=== PATIENT | female | born 1995 | race Caucasian/White ===

== ENCOUNTER 2020-09-16 17:11 | Emergency (ER) | payer BC, OTHER ==
--- OUTSIDE RECORDS SUMMARY | 2020-09-16 17:14 | XMS REPORT | Continuity of Care Document ---
:1995 Author Organization [facility] t Address [address] [place] [address] Care Team Providers Name Role Phone Doctor Unassigned, Name Attending Clinician Unavailable Jelani MENDEZ Attending Clinician Koko Zurita DO Attending Clinician Payers Payer Name Policy Type Policy Number Effective Date Expiration Date S ource Problems This patient has no known problems. Allergies, Adverse Reactions, Alerts Allergy Allergy Status Severity Reaction(s) Onset Inactive Treating Comm ents Source Name Type Date Date Clinician monse PATEL Active SV 2017-0 [facility] [place] Medications This patient has no known medications. Procedures This patient has no known procedures. Encounters Start End Encounter Admission Attending Care Care Encounter Source Date/Time Date/Time Type Type Clinicians Facility Department ID 2020-09-05 2020-09-05 Orders Doctor HARRISON [id number] 00:00:00 00:00:00 Only UnassignedPAM [id number] Pleak [facility] [id number] 2020-08-23 2020-08-23 BRIANNA Kaur [id number] 00:00:00 00:00:00 Management Pearl Singh [id number] [place] [id number] Professio [id number] [address] 2020-08-23 2020-08-23 Orders Doctor CHRISTY [id number] 00:00:00 00:00:00 Only Unassigned, PAM [id number] [place] [facility] [id number] [id number] 2020-08-23 2020-08-23 [facility] [id number] 00:00:00 00:00:00 Outreach Silverio [facility] [id number] [facility] [id number] PAVILLION [id number] 2020-08-11 2020-08-11 [facility] [id number] 00:00:00 00:00:00 Management Pearl Singh [id number] [place] [id number] Professio [id number] [address] 2020-08-11 2020-08-11 Case Jelani [facility] [id number] 00:00:00 00:00:00 Management Pearl Singh [id number] [place] [id number] Professio [phone] [address] 2020-08-11 2020-08-11 Telephone Kylenata [facility] [id number] 00:00:00 00:00:00 Pearlgregory Singh [id number] [place] [id number] Professio [id number] [address] 2020-08-09 2020-08-09 Office Jelani [facility] [id number] 10:11:36 11:17:54 Visit Pearl Gillespie [id number] [place] [id number] Professio [id number] [address] 2020-08-09 2020-08-09 Orders Doctor CHRISTY [id number] 00:00:00 00:00:00 Only Unassigned, PAM [id number] [place] [facility] [id number] [id number] 2020-07-27 2020-07-27 Outpatient [facility] [id number] [facility] 2020-06-30 2020-06-30 Outpatient [facility] [id number] [facility] 2020-06-28 2020-06-28 Outpatient [facility] [id number] [facility] 2020-06-20 2020-06-20 Outpatient [facility] [id number] [facility] 2020-06-16 2020-06-16 Outpatient [facility] [id number] [facility] 2020-04-19 2020-04-19 Outpatient [facility] [id number] [facility] 2020-04-11 2020-04-11 Outpatient [facility] [id number] [facility] 2020-04-11 2020-04-11 Outpatient [facility] [id number] [facility] 2020-03-10 2020-03-10 Outpatient [facility] [id number] [facility] Results This patient has no known results.
[2020-09-16] MEDS ORDERED: MORPHINE 4 MG/ML SYR ONE ×3 (17:51→21:34)
[2020-09-16] MEDS ORDERED: ONDANSETRON 4 MG/2 ML VIAL ONE ×2 (17:51→23:47)
--- NOTE | 2020-09-16 17:54 | RAD REPORT ---
EXAM DESCRIPTION: RAD - Chest Single View - 09/16/2020 5:36 pm CLINICAL HISTORY: SOB COMPARISON: December 2014 TECHNIQUE: AP portable chest image was obtained 09/16/2020 5:36 pm . FINDINGS: Lungs are clear. Heart and vasculature are normal. No measurable pleural effusion and no p neumothorax. No acute bony abnormality seen. No acute aortic findings suspected. IMPRESSION: No acute cardiopulmonary process. No significant change from comparison study.
[2020-09-16 18:04] LABS: Absolute Lymphocytes (CBC) 1.9 K/uL (0.7-4.9); Basophils % 0.3 % (0-1.3); Hematocrit 38.9 % (36.0-45.0); Lymphocytes % 15.6 % (15.3-44.8); MPV 9.3 fL (7.6-11.3); RBC Red Blood Cell Count 4.38 M/uL (3.86-4.86)
[2020-09-16 18:08] LABS: ALT/SGPT 94 U/L (12-78); AST/SGOT 142 U/L (15-37); Albumin 3.5 g/dL (3.4-5.0); Alkaline Phosphatase 145 U/L (45-117); BUN Blood Urea Nitrogen 15 mg/dL (7-18); Bicarbonate 23 mmol/L (21-32); Bilirubin Direct 0.2 mg/dL (0-0.2); Bilirubin Total 0.4 mg/dL (0.2-1.0); Glucose Level 103 mg/dL (74-106); Lipase 178 U/L (73-393); Protein, Total 7.2 g/dL (6.4-8.2); Sodium Level 141 mmol/L (136-145)
--- NOTE | 2020-09-16 18:37 | RAD REPORT ---
EXAM DESCRIPTION: US - Abdomen Exam Limited - 09/16/2020 6:19 pm CLINICAL HISTORY: abdominal pain COMPARISON: Stone Protocol dated 04/06/2016Stone Protocol dated 04/06/2016 FINDINGS: Normal-sized gallbladder is packed with multiple gallstones. There is no wall thickening o r pericholecystic fluid. No large amount of sludge identifiable. No common duct stone or biliary tree dilatation identified. IMPRESSION: Gallbladder packed with multiple gallstones. No other gallbladder or biliary tree abnorm ality.
[2020-09-16] MEDS ORDERED: PIPER/TAZO/NS 3.375gm 3.375 GM/100 ML BAG ONE (19:11)
--- NOTE | 2020-09-16 20:05 | ER ---
Nurse's Notes [facility] Name: eBto Daley Age: 24 yrs Sex: Female : 1995 Arrival Date: 09/16/2020 Time: 17:16 Bed 6 Private MD: Diagnosis: Choledocolithiasis Presentation: 09/16 17:16 Chief complaint: EMS states: Toned out for SOB, on arrival pt reports severe pain to jl7 RUQ, radiating to LUQ x 4 days, reports pain was so bad she could not breathe. EMS reports pts BP was 185/165, gave Nitro SL, next BP 142/85 gave 5 mg metoprolol IVP just prior to arrival at ED. Coronavirus screen: Client denies travel out of the [place] in the last 14 days. At this time, the client does not indicate any symptoms associated with coronavirus-19. Ebola Screen: No symptoms or risks identified at this time. Initial Sepsis Screen: Does the patient meet any 2 criteria? No. Patient's initial sepsis screen is negative. Does the patient have a suspected source of infection? No. Patient's initial sepsis screen is negative. Risk Assessment: Do you want to hurt yourself or someone else? Patient reports no desire to harm self or others. Onset of symptoms was September 13, 2020. Care prior to arrival: Medication(s) given: 0.4 mg Nitro SL \T\ LR IV initiated. 20 GA, in the right antecubital area. Transition of care: patient was not received from another setting of care. 17:16 Method Of Arrival: Ambulatory [facility] 17:16 Acuity: ALEJANDRO 3 jl7 Triage Assessment: 17:28 General: Appears in no apparent distress. uncomfortable, Behavior is cooperative, jl7 anxious. Pain: Complains of pain in right upper quadrant and left upper quadrant Pain currently is 8 out of 10 on a pain scale. at worst was 10 out of 10 on a pain scale. Pain began x 4 days. Neuro: Level of Consciousness is awake, alert, obeys commands, Oriented to person, place, time, situation. Cardiovascular: Patient's skin is warm and dry. Respiratory: Airway is patent Respiratory effort is even, unlabored, Respiratory pattern is regular, symmetrical. GI: Abdomen is round non-distended, Reports upper abdominal pain, nausea. Derm: Skin is pink, warm \T\ dry. 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 - Social history:: Smoking status: Reported history of juuling and/or vaping. Screenin:30 Abuse screen: Denies threats or abuse. Denies injuries from another. Nutritional jl7 screening: No deficits noted. Tuberculosis screening: No symptoms or risk factors identified. Fall Risk Assessment: 17:30 General: See triage assessment. jl7 18:30 Reassessment: Patient appears in no apparent distress at this time. No changes from jl7 previously documented assessment. Patient and/or family updated on plan of care and expected duration. Pain level reassessed. Patient is alert, oriented x 3, equal unlabored respirations, skin warm/dry/pink. 19:30 Reassessment: PATIENT IS ALERT AND ORIENTED. RECEIVED PAIN MEDICATION BEFORE SHIFT rv CHANGE. PATIENT IS AWARE OF THE RESULTS OF TESTS AND PLAN OF CARE. TRANSFER PROCESS ONGOING. 20:30 Reassessment: Patient appears in no apparent distress at this time. No changes from rr5 previously documented assessment. for transfer awaiting for approval. 21:30 Reassessment: Patient appears in no apparent distress at this time. Patient and/or rr5 family updated on plan of care and expected duration. Pain level reassessed. Patient is alert, oriented x 3, equal unlabored respirations, skin warm/dry/pink. awaiting for bed management to call back ( [facility]) complaint abdominal pain, pain score 5/10. ED provider aware with order made and carried out. 22:31 Reassessment: JIMENEZ [facility] given report and accepted the case. rr5 09/17 00:06 GI: Bowel sounds present X 4 quads. Abd is soft and non tender X 4 quads. rv Vital Signs: 09/16 17:16 BP 115 / 77; Pulse 82; Resp 16 S; Temp 97.8(TE); Pulse Ox 98% on R/A; Weight 83.91 kg jl7 (R); Height 5 ft. 2 in. (157.48 cm) (R); Pain 8/10; 18:49 BP 115 / 73; Pulse 90; Resp 15; Pulse Ox 98% ; jl7 19:30 BP 104 / 73; Pulse 79; Resp 17; Pulse Ox 98% on R/A; rv 20:30 BP 116 / 87; Pulse 70; Resp 17; Pulse Ox 99% ; rr5 21:30 BP 118 / 65; Pulse 75; Resp 16; Pulse Ox 99% ; rr5 22:00 BP 109 / 78; Pulse 67; Resp 16; Pulse Ox 100% on R/A; rv 23:00 BP 110 / 69; Pulse 64; Resp 16; Pulse Ox 99% on R/A; rv 23:30 BP 110 / 64; Pulse 90; Resp 17; Pulse Ox 99% on R/A; rv 17:16 Body Mass Index 33.84 (83.91 kg, 157.48 cm) jl7 ED Course: 17:16 Patient arrived in ED. jl7 17:22 Duncan Villa MD is Attending Physician. tw4 17:23 Chito Wise PA is PHCP. jmm 17:27 Triage completed. jl7 17:28 Arm band placed on right wrist. jl7 17:38 Chest Single View XRAY In Process Unspecified. EDMS 17:51 Patient has correct armband on for positive identification. Placed in gown. Bed in low jl7 position. Call light in reach. Side rails up X 1. 17:51 Pulse ox on. NIBP on. Warm blanket given. jl7 17:51 Initial lab(s) drawn, by me, sent to lab. Maintain EMS IV. Dressing intact. Good blood jl7 return noted. Site clean \T\ dry. Gauge \T\ site: 20 right AC. 18:19 US Abdomen Limited In Process Unspecified. EDMS 18:[address] [facility] with Tanya Layton. Stated she would do a bed check tt3 and call back. 18:49 Maliha Parker, DEBBY is Primary Nurse. jl7 19:15 Jennifer Prater called back with Dr. Fenton, their GI specialist to do a Doc to Doc tt3 consultation with CALEB Quevedo, provider of pt. 20:06 Primary Nurse role handed off by Maliha Parker RN tt3 20:17 Inocencio Foss, DEBBY is Primary Nurse. rv 20:39 Jennifer Josi called to check on covid results, provided her with the results. Stated she tt3 was waiting for a bed assignment and would call back with admin approval and the bed assignment. 21:46 Jennifer Prater gave admin approval. The accepting physician is Dr. Walton. Dr. Walton tt3 accepted at 1944. The pt is going to Room 2402. Nurse to call report to . Covid results and face sheet faxed to [phone]. 22:48 [facility] to transfer pt. ETA of 55 minutes - 1 hour per Mela with [facility]. 09/17 00:06 No provider procedures requiring assistance completed. IV is patent, with fluids rv infusing freely, Patient transferred, IV remains in place. Administered Medications: 09/16 17:50 Drug: morphine 4 mg Route: IVP; Site: right antecubital; jl7 18:00 Follow up: Response: No adverse reaction; Pain is decreased jl7 17:50 Drug: Zofran (Ondansetron) 4 mg Route: IVP; Site: right antecubital; jl7 18:00 Follow up: Response: No adverse reaction 7 18:40 Drug: morphine 4 mg Route: IVP; Site: right antecubital; jl7 19:40 Follow up: Response: No adverse reaction; RASS: Alert and Calm (0) rr5 19:02 Drug: Zosyn 3.375 grams Route: IVPB; Infused Over: 60 mins; Site: right antecubital; jl7 20:00 Follow up: Response: No adverse reaction; IV Status: Completed infusion; IV Intake: rr5 100ml 20:05 Drug: NS 0.9% 1000 ml Route: IV; Rate: 125 ml/hr; Site: right antecubital; rr5 09/17 00:07 Follow up: IV Status: Infusion continued upon transfer rv 09/16 21:25 Drug: morphine 4 mg {Note: rass 0.} Route: IVP; Site: right antecubital; rr5 09/17 00:07 Follow up: Response: No adverse reaction rv 09/16 23:32 Drug: Zofran (Ondansetron) 4 mg Route: IVP; Site: right antecubital; rr5 09/17 00:06 Follow up: Response: No adverse reaction rv Intake: 09/16 20:00 IV: 100ml; Total: 100ml. rr5 Outcome: 20:04 ER care complete, transfer ordered by . april 09/17 00:06 Transferred by ground EMS to [facility], Transfer form completed. rv X-rays sent w/ patient. Condition: good Instructed on the need for transfer. 00:07 Patient left the ED. rv Signatures: Dispatcher [employer] EDMS Chito Wise PA PA jmm Leal, Jahala, RN RN jl7 Duncan Villa MD MD tw4 Inocencio Foss RN RN Dima Galindo RN RN rr5 Yahir Alex tt3 Corrections: (The following items were deleted from the chart) 09/16 19:03 08:40 morphine 4 mg IVP in right antecubital jl7 jl7
--- NOTE | 2020-09-16 20:05 | EDPHYS ---
Physician Documentation [facility] Name: Beto Daley Age: 24 yrs Sex: Female : 1995 Arrival Date: 09/16/2020 Time: 17:16 Bed 6 Private MD: ED Physician Duncan Villa HPI: 09/16 17:28 This 24 yrs old Female presents to ER via Ambulatory with complaints of [facility] Abdominal Pain. 17:28 The patient presents with abdominal pain. Onset: The symptoms/episode began/occurred jm gradually, 1 week(s) ago. The symptoms do not radiate. Associated signs and symptoms: Pertinent positives: chest pain, shortness of breath, Pertinent negatives: diarrhea, vomiting. The symptoms are described as achy. Modifying factors: The symptoms are alleviated by nothing, the symptoms are aggravated by nothing. The patient has not experienced similar symptoms in the past. Patient recently diagnosed with bronchitis last week. 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 - Social history:: Smoking status: Reported history of juuling and/or vaping. ROS: 17:28 Constitutional: Negative for fever, chills, and weight loss. [facility] 17:28 Cardiovascular: Positive for chest pain. 17:28 Respiratory: Positive for shortness of breath. 17:28 Abdomen/GI: Positive for abdominal pain. 17:28 All other systems are negative. Exam: 17:28 Constitutional: This is a well developed, well nourished patient who is awake, alert, jmm and in no acute distress. Head/Face: atraumatic. Eyes: EOMI, no conjunctival erythema appreciated ENT: Moist Mucus Membranes Neck: Trachea midline, Supple Chest/axilla: Normal chest wall appearance and motion. Cardiovascular: Regular rate and rhythm. No edema appreciated Respiratory: Normal respirations, no respiratory distress appreciated 17:28 Abdomen/GI: Inspection: abdomen appears normal, Bowel sounds: 17:30 Back: Normal ROM Skin: General appearance color normal MS/ Extremity: Moves all [facility] extremities, no obvious deformities appreciated, no edema noted to the lower extremities Neuro: Awake and alert, normal gait Psych: Behavior is normal, Mood is normal, Patient is cooperative and pleasant 17:30 Abdomen/GI: Palpation: soft, mild abdominal tenderness, in the right upper quadrant. Vital Signs: 17:16 BP 115 / 77; Pulse 82; Resp 16 S; Temp 97.8(TE); Pulse Ox 98% on R/A; Weight 83.91 kg jl7 (R); Height 5 ft. 2 in. (157.48 cm) (R); Pain 8/10; 18:49 BP 115 / 73; Pulse 90; Resp 15; Pulse Ox 98% ; jl7 19:30 BP 104 / 73; Pulse 79; Resp 17; Pulse Ox 98% on R/A; rv 20:30 BP 116 / 87; Pulse 70; Resp 17; Pulse Ox 99% ; rr5 21:30 BP 118 / 65; Pulse 75; Resp 16; Pulse Ox 99% ; rr5 22:00 BP 109 / 78; Pulse 67; Resp 16; Pulse Ox 100% on R/A; rv 23:00 BP 110 / 69; Pulse 64; Resp 16; Pulse Ox 99% on R/A; rv 23:30 BP 110 / 64; Pulse 90; Resp 17; Pulse Ox 99% on R/A; rv 17:16 Body Mass Index 33.84 (83.91 kg, 157.48 cm) jl7 MDM: 17:23 Patient medically screened. [facility] 20:02 Data reviewed: vital signs, nurses notes. Counseling: I had a detailed discussion with [facility] the patient and/or guardian regarding: the historical points, exam findings, and any diagnostic results supporting the discharge/admit diagnosis, lab results, radiology results, the need to transfer to another facility. ED course: I discussed the patient with IQRA Jamison whom accepted the patient for transfer. I discussed the patient with Dr. Walton whom accepted the patient for transfer. . 09/16 17:23 Order name: Basic Metabolic Panel tw4 09/16 17:23 Order name: CBC with Diff; Complete Time: 18:16 tw4 09/16 17:23 Order name: Hepatic Function; Complete Time: 18:16 tw4 09/16 17:23 Order name: Lipase; Complete Time: 18:16 tw4 04/16 17:23 Order name: Basic Metabolic Panel; Complete Time: 18:16 EDMS 09/16 17:25 Order name: Chest Single View XRAY; Complete Time: 17:55 jmm 09/16 17:25 Order name: US Abdomen Limited; Complete Time: 18:38 jmm 09/16 20:28 Order name: SARS-COV-2 RT PCR; Complete Time: 20:35 EDMS 09/16 21:38 Order name: Urine --Ancillary (enter results); Complete Time: 23:10 tt3 09/16 17:23 Order name: IV Saline Lock; Complete Time: 17:46 tw4 09/16 17:23 Order name: Labs collected and sent; Complete Time: 17:46 tw4 09/16 18:45 Order name: Urine Test (obtain specimen); Complete Time: 21:49 jmm Administered Medications: 17:50 Drug: morphine 4 mg Route: IVP; Site: right antecubital; jl7 18:00 Follow up: Response: No adverse reaction; Pain is decreased jl7 17:50 Drug: Zofran (Ondansetron) 4 mg Route: IVP; Site: right antecubital; jl7 18:00 Follow up: Response: No adverse reaction jl7 18:40 Drug: morphine 4 mg Route: IVP; Site: right antecubital; jl7 19:40 Follow up: Response: No adverse reaction; RASS: Alert and Calm (0) rr5 19:02 Drug: Zosyn 3.375 grams Route: IVPB; Infused Over: 60 mins; Site: right antecubital; jl7 20:00 Follow up: Response: No adverse reaction; IV Status: Completed infusion; IV Intake: rr5 100ml 20:05 Drug: NS 0.9% 1000 ml Route: IV; Rate: 125 ml/hr; Site: right antecubital; rr5 09/17 00:07 Follow up: IV Status: Infusion continued upon transfer rv 09/16 21:25 Drug: morphine 4 mg {Note: rass 0.} Route: IVP; Site: right antecubital; rr5 09/17 00:07 Follow up: Response: No adverse reaction 09/16 23:32 Drug: Zofran (Ondansetron) 4 mg Route: IVP; Site: right antecubital; rr5 04/17 00:06 Follow up: Response: No adverse reaction rv Disposition: 09/16/20 20:[address] [facility]. Diagnosis is Choledocolithiasis. - Reason for transfer: Higher level of care. - Accepting physician is Dr. Walton. - Condition is Stable. - Problem is new. - Symptoms are unchanged. Addendum: 09/21/2020 10:08 Co-signature as Attending Physician, Duncan Villa MD I agree with the assessment and t w4 plan of care. Signatures: Dispatcher [employer] EDCT Chito Wise PA PA jmm Leal, Jahala, RN RN jl7 Duncan Villa MD MD tw4 Inocencio Foss, RN RN rv Dima Aldridge, RN RN rr5 Corrections: (The following items were deleted from the chart) 09/16 19:44 18:39 CORONAVIRUS+MR.LAB.BRZ ordered. EDCT EDCT 09/17 00:07 09/16 20:04 09/16/2020 20:[address] [facility]. rv Diagnosis is Choledocolithiasis. Reason for transfer: Higher level of care. Accepting physician is Dr. Walton. Condition is Stable. Problem is new. Symptoms are unchanged. april
[2020-09-16] MEDS ORDERED: NA CHLORIDE 0.9% 1,000 ML ONE (20:20)
[2020-09-16 22:23] LABS: Urine Specific Gravity/Preg 1.025 (1.005-1.030)
[2020-09-17 00:52] VITALS: TEMP 97.8
[2020-09-17 01:08] VITALS: O2SAT 99
[2020-09-17 01:10] VITALS: BP 110/64
[2020-09-21 16:17] LABS: Urine Blood 3+ (Negative); Urine Glucose NEGATIVE (Negative); Urine Protein 2+ (Negative); Urine Specific Gravity 1.025 (1.005-1.030); Urine pH 7.5 (5.0-7.0)
== END 2020-09-17 00:07 | disposition short-term general hospital (02) ==
LOC: ER 17:11
DX: K80.70 Calculus of gallbladder and bile duct without cholecystitis without obstruction (principal); Z20.822 Contact with and (suspected) exposure to COVID-19; Z98.84 Bariatric surgery status; F17.290 Nicotine dependence, other tobacco product, uncomplicated
CPT/HCPCS: 96365; 96361; 85025; 80048; 36415; 81025; 80076; 83690; 71045; 76705; 96375; 99285; U0003; J2543; J7030; J2405 ×2; 81003

== ENCOUNTER 2020-09-21 09:02 | Day surgery (SDC) | payer BC ==
[~2020-09-21 09:02] MED LIST: FENTANYL CITR 100 MCG/2 ML ONE; KETOROLAC 30 MG/ML INJ ONE; LIDOCAINE 2% MPF 5 ML VIAL ONE; MIDAZOLAM HCL 2 MG/2 ML INJ ONE; ONDANSETRON 4 MG/2 ML VIAL ONE; ROCURONIUM 50 MG/5 ML VIAL IV ONE; dexAMETHasone 10 MG/ML VIAL ONE; propofoL 200 MG/20 ML VIAL IV ONE
[2020-09-21] MEDS ORDERED: Ringers Lactate 1,000 ML IV ONE (09:45)
[2020-09-21 09:48] VITALS: O2SAT 100
[2020-09-21] MEDS ORDERED: dexAMETHasone 10 MG/ML VIAL ONE ×2 (09:50→12:46)
[2020-09-21] MEDS ORDERED: propofoL 200 MG/20 ML VIAL IV ONE (09:50)
[2020-09-21] MEDS ORDERED: ROCURONIUM 50 MG/5 ML VIAL IV ONE (09:50)
[2020-09-21] MEDS ORDERED: MIDAZOLAM HCL 2 MG/2 ML INJ ONE (09:50)
[2020-09-21] MEDS ORDERED: ONDANSETRON 4 MG/2 ML VIAL ONE ×2 (09:50→14:01)
[2020-09-21] MEDS ORDERED: KETOROLAC 30 MG/ML INJ ONE (09:50)
[2020-09-21] MEDS ORDERED: LIDOCAINE 2% MPF 5 ML VIAL ONE (09:50)
[2020-09-21] MEDS ORDERED: FENTANYL CITR 100 MCG/2 ML ONE ×2 (09:50→12:24)
[2020-09-21] MEDS: CEFOXITIN/SWI 1gm 1 GM/10 ML SYR ONE ×2 (10:47→11:48)
[2020-09-21] MEDS ORDERED: BUPIVACAINE 0.25% PF 30 ML VIAL ONE (12:08)
--- NOTE | 2020-09-21 12:42 | P.BOP ---
Preoperative diagnosis: acute cholecystitis, symptomatic cholelithiasis, s/p ERCP and stent Postoperative diagnosis: same Primary procedure: Laparoscopic cholecystectomy Research Associate Molecular Biology: AVERY DELGADO (GEOSCIENCE SPECIALIST) Estimated blood loss: <10cc Specimen: gb Findings: as above Anesthesia: General Complications: None Transferred to: Recovery Room Condition: Good
[2020-09-21] MEDS ORDERED: BUPIVACAINE 0.25% PF 10 ML VIAL ONE (12:45)
[2020-09-21] MEDS ORDERED: NS 0.9% VIAL 10 ML ONE (12:49)
[2020-09-21] MEDS ORDERED: GLYCOPYRROLATE 0.2 MG/ML SYR ONE (12:59)
[2020-09-21] MEDS ORDERED: NEOSTIGMINE 1 MG/ML -5 ML ONE (12:59)
[2020-09-21] MEDS: MEPERIDINE HCL 25 MG/ML SYR ONE ×4 (13:11→13:40)
[2020-09-21 14:38] VITALS: BP 106/60; TEMP 97
--- NOTE | 2020-09-21 20:23 | OP ---
Date of Procedure: 09/21/2020 Surgeon: Rob Cruz MD Preoperative Diagnoses: Acute cholecystitis, symptomatic cholelithiasis, choledocholithiasis, status post ERCP and stent placement. Postoperative Diagnoses: Acute cholecystitis, symptomatic cholelithiasis, choledocholithiasis, statu s post ERCP and stent placement. Procedure: Laparoscopic cholecystectomy. Anesthesia: General plus local. Indication: This is the case of a 24-year-old patient with above diagnosis. Fully explained the matthew efits, alternatives, and risks of laparoscopic possible open cholecystectomy, which include, but not limited to infection, bleeding, damage to adjacent structures, anesthesia complication, choledocholit hiasis, bile leak, pancreatitis, MD, and even . She also understands this may not relieve any s ymptoms. She might need more than one surgical intervention. She understood, signed a consent. The patient also understands she has to follow up with her mica paster since the stent has to be removed in the next week or 2 or whenever the GI doctor believe it is prudent. She understands the s tent will not be removed today, she has to see her mica paster. She understood and acknowledg ed. Procedure In Detail: The patient was brought to the operating room, placed in supine position. Anes thesia was done without complication. Abdominal area was prepped and draped in a sterile fashion. M arcaine 0.5% was injected for local anesthetic followed by sharp incision of the skin in the infraumb ilical region. The incision was carried down to fascia, which was opened under direct vision. Perit oneum was encountered, opened under direct vision. Vicryl #1 placed inside the fascia. Jacklyn troca r was carefully introduced. Pneumoperitoneum was obtained. I placed 3 more trocars, 5 mm each one o f them in the right upper quadrant. This was done under direct visualization. This allowed me to pu t a grasper in the fundus of the gallbladder and another grasper in the infundibulum retracting the g allbladder in the inferolateral fashion exposing the triangle of Calot and obtaining critical view. The cystic duct and cystic artery were clearly isolated, freed circumferentially and a connection bet ween those and the gallbladder was clearly identified. I proceeded to ligate those by using at least 3 clips proximal, 1 clip distal, ligation in the middle. Same was done with the cystic artery. No bile leak, no bleeding. The gallbladder was removed from liver using Bovie cauterizer and removed fr om abdominal cavity using EndoCatch through the umbilical incision. The area was inspected once agai n. Clips were intact. No bile leak, no bleeding. Gallbladder fossa with no bleeding. At that mome nt, I proceeded to remove the trocars under direct vision. Deflated the pneumoperitoneum. Closed th e fascia with #1 Vicryl. Irrigated the subcutaneous tissue, closed with 3-0 chromic and skin in a álvarez bcuticular fashion with 3-0 chromic, and Steri-Strips on top. Sponge count and instrument counts wer e correct. The patient tolerated the procedure well. The patient was sent to recovery in stable con dition. ORIN/NICK Voice ID: [id number] Report ID: [id number]
--- NOTE | 2020-09-21 20:26 | DS ---
Date of Discharge: 09/21/2020 Diagnoses: Acute cholecystitis, symptomatic cholelithiasis, choledocholithiasis, status post ERCP an d stent placement. Procedure: Laparoscopic cholecystectomy. Disposition: Home. Discharge Instructions: Activity as tolerated. No heavy lifting. Follow in my office in 1 week. C all for appointment at [phone]. Keep area dry for 48 hours, then may shower. Keep Steri-Strips int act. Medications: Include Tylenol No. 3 q.4 hours p.r.n. pain, Augmentin 875 p.o. q.12. ORIN/NICK Voice ID: [id number] Report ID: [id number]
== END 2020-09-21 14:24 | disposition home or self-care (01) ==
LOC: OR 09:02
PROVIDERS: ATTEND Surgery
PROC: 0FT44ZZ Resection of Gallbladder, Percutaneous Endoscopic Approach (ICD-10-PCS; principal; 2020-09-21 10:30)
DX: K80.10 Calculus of gallbladder with chronic cholecystitis without obstruction (principal)
CPT/HCPCS: 36415; 82150; 84703; 88304; 83690; 47562; J2704; J2250; J3010 ×2; J1100 ×2; J2175 ×2; J2710; J7120; J2405 ×2

== ENCOUNTER 2021-01-25 07:23 | Day surgery (SDC) | payer BC ==
[2021-01-25 07:57] LABS: Specific Gravity 1.015 (1.005-1.030)
[2021-01-25] MEDS ORDERED: Ringers Lactate 1,000 ML IV ONE ×2 (08:46→12:21)
[2021-01-25 08:58] VITALS: O2SAT 100
[2021-01-25] MEDS ORDERED: FENTANYL CITR 100 MCG/2 ML ONE ×2 (10:00→11:54)
[2021-01-25] MEDS ORDERED: MIDAZOLAM HCL 2 MG/2 ML INJ ONE ×2 (10:00→11:54)
[2021-01-25] MEDS ORDERED: LIDOCAINE 1% MPF 5 ML VIAL ONE (10:00)
[2021-01-25] MEDS ORDERED: propofoL 200 MG/20 ML VIAL IV ONE ×3 (10:00→13:10)
[2021-01-25] MEDS ORDERED: GLUCAGON 1 MG/VIAL ONE ×2 (10:12→11:58)
[2021-01-25] MEDS ORDERED: GENTAMICIN SULF 80 MG/2ML INJ ONE ×2 (10:13→11:58)
--- NOTE | 2021-01-25 10:54 | ENDO RPT ---
[address], [address] ERCP PROCEDURE REPORT EXAM DATE: 01/25/2021 PATIENT NAME: Beto Daley MR #: [id number] BIRTHDATE: 1995 ATTENDING: Rambo [address] STATUS: outpatient PRIVATE PILOT: Mayi Goldberg RN, Ree Cornejo, and Hattie Guzman CST INDICATIONS: The patient is a 25 yr old Female here for an ERCP due to stent removal PROCEDURE PERFORMED: ERCP with stent removal MEDICATIONS: Per Anesthesia. CONSENT: The patient understands the risks and benefits of the procedure and understands that these risks include, but are not limited to: sedation, allergic reaction, infection, perforation and/or bleeding. Alternative means of evaluation and treatment include, among others: physical exam, x-rays, and/or surgical intervention. The patient elects to proceed with this endoscopic procedure. DESCRIPTION OF PROCEDURE: During intra-op preparation period all mechanical medical equipment was checked for proper function. Hand hygiene and appropriate measures for infection prevention was taken. Procedure, possible complications, and alternatives including but not limited to the possibility of bleeding, perforation, tear, infection, sepsis, need for surgery, need for blood transfusion, and anesthesia related complications were explained to the patient. In addition, 5-30% incidence of acute pancreatitis as a result of ERCP were explained. After the risks, benefits and alternatives of the procedure were thoroughly explained, Informed was verified, confirmed and timeout was successfully executed by the treatment team. With the patient in left semi-prone position, medications were administered intravenously.The ED-[id number] ([id number]) was passed from the mouth into the esophagus and further advanced from the esophagus into the stomach. From stomach scope was directed to the second portion of the duodenum. Major papilla was aligned with the duodenoscope. The scope position was confirmed fluoroscopically. Rest of the findings/therapeutics are given below. The scope was then completely withdrawn from the patient and the procedure completed. The pulse, BP, and O2 saturation were monitored and documented by the physician and the nursing staff throughout the entire procedure. The patient was cared for as planned according to standard protocol. The patient was then discharged to recovery in stable condition and with appropriate post procedure care. A stent was present in the common bile duct. The previously placed stent was removed. ADVERSE EVENT: There were no complications. IMPRESSIONS: 7-7 plastic biliary stent in the common bile duct, s/p removal with rat tooth forceps (unable to remove with snare) RECOMMENDATIONS: antibiotics REPEAT EXAM: Rambo Arteaga Dr eSigned: Rambo Arteaga Dr 01/25/2021 10:53 AM cc: CPT CODES: ICD9 CODES: PATIENT NAME: Beto Daley MR#: [id number]
[2021-01-25] MEDS ORDERED: CEFAZOLIN/SWI 1gm 1 GM/10 ML SYR ONE (11:25)
--- NOTE | 2021-01-25 11:30 | RAD REPORT ---
EXAM DESCRIPTION: RAD - Fluoroscopy ERCP - 01/25/2021 11:15 am FINDINGS: Three portable C-arm views were submitted from a fluoroscopic assisted ERCP for stent sushant jose alejandro. Fluoro time was 20 seconds.
[2021-01-25] MEDS ORDERED: MEPERIDINE HCL 25 MG/ML SYR ONE (11:33)
[2021-01-25] MEDS ORDERED: PROMETHAZINE INJ 25 MG/ML AMP ONE (11:33)
[2021-01-25] MEDS ORDERED: LIDOCAINE 1% MPF 30 ML VIAL ONE (11:55)
--- NOTE | 2021-01-25 13:08 | ENDO RPT ---
[address], [address] ERCP PROCEDURE REPORT EXAM DATE: 01/25/2021 PATIENT NAME: Beto Daley MR #: [id number] BIRTHDATE: 1995 ATTENDING: Rambo Ar[address] Dr STATUS: outpatient HYDRAULIC TECHNICIAN: Mayi Goldberg RN, Ree Cornejo, and Hattie Guzman CST INDICATIONS: The patient is a 25 yr old Female here for an ERCP due to stent removal PROCEDURE PERFORMED: ERCP with stent removal MEDICATIONS: Per Anesthesia. CONSENT: The patient understands the risks and benefits of the procedure and understands that these risks include, but are not limited to: sedation, allergic reaction, infection, perforation and/or bleeding. Alternative means of evaluation and treatment include, among others: physical exam, x-rays, and/or surgical intervention. The patient elects to proceed with this endoscopic procedure. DESCRIPTION OF PROCEDURE: During intra-op preparation period all mechanical medical equipment was checked for proper function. Hand hygiene and appropriate measures for infection prevention was taken. Procedure, possible complications, and alternatives including but not limited to the possibility of bleeding, perforation, tear, infection, sepsis, need for surgery, need for blood transfusion, and anesthesia related complications were explained to the patient. In addition, 5-30% incidence of acute pancreatitis as a result of ERCP were explained. After the risks, benefits and alternatives of the procedure were thoroughly explained, Informed was verified, confirmed and timeout was successfully executed by the treatment team. With the patient in left semi-prone position, medications were administered intravenously.The ED-[id number] ([id number]) was passed from the mouth into the esophagus and further advanced from the esophagus into the stomach. From stomach scope was directed to the second portion of the duodenum. Major papilla was aligned with the duodenoscope. The scope position was confirmed fluoroscopically. Rest of the findings/therapeutics are given below. The scope was then completely withdrawn from the patient and the procedure completed. The pulse, BP, and O2 saturation were monitored and documented by the physician and the nursing staff throughout the entire procedure. The patient was cared for as planned according to standard protocol. The patient was then discharged to recovery in stable condition and with appropriate post procedure care. A stent was present in the common bile duct. The previously placed stent was removed using rat tooth forceps. Patient experienced pain after procedure with trauma to duodenum from stent removal. Then patient taken back for EGD revealing only minor duodenum trauma. Repeat ERCP revealed 6 mm stone in common bile duct now. Unable to remove with 9 mm balloon catheter. Previous sphincterotomy was extended. Unable to remove stone from bile duct despite multiple repeat attempts with 9-12 mm balloon catheter. Suspect from images possible distal common bile duct stricture (no biliary dilators nor retrieval baskets available here). 7-5 plastic biliary stent placed. ADVERSE EVENT: There were no complications. IMPRESSIONS: 1. 7-7 plastic biliary stent in the common bile duct, s/p removal with rat tooth forceps (unable to remove with snare) 2. 6 mm stone in common bile duct, unable to remove despite sphincterotomy 3. Suspect from images possible distal common bile duct stricture (no biliary dilators nor retrieval baskets available here) 4. 7-5 plastic biliary stent placed RECOMMENDATIONS: 1. antibiotics 2. tertiary center for basket retrieval or possible distal CBD dilatation or other REPEAT EXAM: Rambo Arte[address] Dr eSigned: Rambo Arteaga Dr 01/25/2021 1:08 PM Revised: 01/25/2021 1:08 PM cc: CPT CODES: ICD9 CODES: PATIENT NAME: Beto Daley MR#: [id number]
--- NOTE | 2021-01-25 13:27 | RAD REPORT ---
EXAM DESCRIPTION: Fluoroscopy for ERCP CLINICAL HISTORY: ERCP, STENT PLACEMENT Abdominal pain FINDINGS: Fluoroscopic images submitted from ERCP procedure. Details and diagnostic findings of the procedure are not available. Total fluoroscopy time: 10 minutes and 22 seconds
[2021-01-25] MEDS ORDERED: ONDANSETRON 4 MG/2 ML VIAL ONE (14:01)
[2021-01-25 14:13] VITALS: BP 109/84; TEMP 97.9
== END 2021-01-25 13:52 | disposition home or self-care (01) ==
LOC: OR 07:23
PROVIDERS: ATTEND Internal Medicine Gastroenterology
PROC: 0FPB8DZ Removal of Intraluminal Device from Hepatobiliary Duct, Via Natural or Artificial Opening Endoscopic (ICD-10-PCS; principal; 2021-01-25 09:00)
DX: Z46.89 Encounter for fitting and adjustment of other specified devices (principal); K80.10 Calculus of gallbladder with chronic cholecystitis without obstruction; K81.0 Acute cholecystitis; E66.3 Overweight; R12 Heartburn; Z20.822 Contact with and (suspected) exposure to COVID-19
CPT/HCPCS: 81025; 88300; 43275; U0003; J2704 ×3; J1610; J2550; J1580 ×2; J2250 ×2; J3010 ×2; J2175; J0690; J7120 ×2; J2405; C1769; C2625